=== PATIENT | female | born 2000 | race Caucasian/White ===

== ENCOUNTER 2023-09-16 11:51 | Emergency (ER) | payer SELFPAY ==
[~2023-09-16] VITALS: Ht 157.5 cm; Wt 99.4 kg
[2023-09-16 11:52] VITALS: BP 138/82; TEMP 97.8; O2SAT 98
[2023-09-16] MEDS ORDERED: IBUP200T46 PO (12:06)
[2023-09-16] MEDS ORDERED: ETON68IM SC (12:09)
== END 2023-09-16 16:54 | disposition left against medical advice (07) ==
LOC: M ED 11:51
DX: Z53.21 Procedure and treatment not carried out due to patient leaving prior to being seen by health care provider (principal)

== ENCOUNTER 2024-05-03 21:18 | Emergency (ER) | payer OTHER, SELFPAY ==
[~2024-05-03] VITALS: Ht 157.5 cm; Wt 101.8 kg
[~2024-05-03 21:18] MED LIST: ETON68IM SC; IBUP200T46 PO
[2024-05-03 21:29] VITALS: TEMP 99.8
[2024-05-03 22:55] LABS: BASO # 0.1 10^3/uL (0.0-0.2); BASO % 0.7 % (0.0-1.0); EOS # 0.1 10^3/uL (0.0-0.5); EOS % 1.6 % (0.0-3.0); HEMATOCRIT 41.6 % (36.0-47.0); HEMOGLOBIN 13.6 g/dl (12.0-15.5); LYMPH # 2.6 10^3/uL (1.5-5.0); LYMPH % 29.6 % (24.0-44.0); MEAN CORPUSCULAR HEMOGLOBIN 27.1 pg (27.0-33.0); MEAN CORPUSCULAR HGB CONC 32.7 g/dl (32.0-36.5); MONO # 0.7 10^3/uL (0.0-0.8); MONO % 8.2 % (2.0-8.0); NEUTROPHILS # 5.3 10^3/uL (1.5-8.5); NEUTROPHILS % 59.7 % (36.0-66.0); PLATELET COUNT, AUTOMATED 264 10^3/uL (150-450); RED BLOOD COUNT 5.01 10^6/uL (4.00-5.40); WHITE BLOOD COUNT 8.8 10^3/uL (4.0-10.0)
[2024-05-03 23:30] LABS: ALBUMIN 4.1 G/DL (3.2-5.2); ALKALINE PHOSPHATASE 110 U/L (35-104); ALT/SGPT 14 U/L (7.0-40); AST/SGOT 14 U/L (<34); BILIRUBIN,DIRECT 0.1 MG/DL (<0.4); BILIRUBIN,TOTAL 0.4 MG/DL (0.3-1.2); BLOOD UREA NITROGEN 13 MG/DL (9-23); CALCIUM LEVEL 9.7 MG/DL (8.5-10.1); CARBON DIOXIDE LEVEL 25 MMOL/L (20-31); CHLORIDE LEVEL 104 MMOL/L (98-107); CREATININE FOR GFR 0.66 MG/DL (0.55-1.30); GLOMERULAR FILTRATION RATE > 60.0 (>60); GLUCOSE, FASTING 81 MG/DL (60-100); POTASSIUM SERUM 4.1 MMOL/L (3.5-5.1); SODIUM LEVEL 139 MMOL/L (136-145); TOTAL PROTEIN 8.5 G/DL (5.7-8.2)
[2024-05-04 00:30] VITALS: O2SAT 96
[2024-05-04 00:33] VITALS: BP 127/67
== END 2024-05-04 00:38 | disposition home or self-care (01) ==
LOC: M ED 21:18
DX: R56.9 Unspecified convulsions (principal); Z79.899 Other long term (current) drug therapy

== ENCOUNTER 2025-01-06 17:13 | Emergency (ER) | payer OTHER ==
[~2025-01-06] VITALS: Ht 157.5 cm; Wt 102.9 kg
[2025-01-06] MEDS ORDERED: IBUP-1114 PO (17:23)
[2025-01-06 18:03] LABS: BASO # 0.1 10^3/uL (0.0-0.2); BASO % 0.8 % (0.0-1.0); EOS # 0.2 10^3/uL (0.0-0.5); EOS % 1.6 % (0.0-3.0); LYMPH # 2.8 10^3/uL (1.5-5.0); LYMPH % 31.0 % (24.0-44.0); MONO # 0.8 10^3/uL (0.0-0.8); MONO % 9.2 % (2.0-8.0); NEUTROPHILS # 5.2 10^3/uL (1.5-8.5); NEUTROPHILS % 57.1 % (36.0-66.0); PLATELET COUNT, AUTOMATED 305 10^3/uL (150-450)
[2025-01-06 18:54] LABS: ALT/SGPT 36 U/L (7.0-40); AST/SGOT 39 U/L (<34); CALCIUM LEVEL 9.4 MG/DL (8.5-10.1); CARBON DIOXIDE LEVEL 25 MMOL/L (20-31); CHLORIDE LEVEL 102 MMOL/L (98-107); CREATININE FOR GFR 0.65 MG/DL (0.55-1.30); GLOMERULAR FILTRATION RATE > 90.0 (>60); POTASSIUM SERUM 4.4 MMOL/L (3.5-5.1); SODIUM LEVEL 139 MMOL/L (136-145)
[2025-01-06 18:56] LABS: HCG, SERUM QUALITATIVE NEGATIVE (NEGATIVE)
[2025-01-06 19:50] LABS: KETONE, URINE AUTO RFX NEGATIVE (NEGATIVE); NITRITE, URINE AUTO RFX NEGATIVE (NEGATIVE); RBC, URINE AUTO RFX 0 /HPF (0-3); SQUAM EPITHELIAL CELL UR AURFX 11 /HPF (0-6); WBC, URINE AUTO RFX 1 /HPF (0-3)
[2025-01-06 19:51] LABS: LEUKOCYTE ESTERASE UR AUTO RFX 3+ (NEGATIVE)
[2025-01-06] MEDS: KETOROLAC 30 MG/ML 1 ML VIAL IM ONE (19:53)
[2025-01-06] MEDS ORDERED: MACR100C43 PO (20:58)
[2025-01-06] MEDS ORDERED: NAPR-837 PO (21:00)
[2025-01-06 21:07] VITALS: BP 135/74; TEMP 97.8; O2SAT 98
[2025-01-06] MEDS: NITROFURANTOIN 100 MG CAP PO ONE (21:08)
== END 2025-01-06 21:12 | disposition home or self-care (01) ==
LOC: M ED 17:13
DX: N83.292 Other ovarian cyst, left side (principal)
CPT/HCPCS: 74176; 76856; 80048; 80076; 81001; 83690; 84703; 85025; 87086; 93976; 96372; 99283; J1885